=== PATIENT | male | born 1980 | race Caucasian/White ===

== ENCOUNTER 2021-01-24 14:02 | Inpatient (IN) | payer OTHER, SELFPAY ==
[~2021-01-24] VITALS: Ht 188 cm; Wt 156.5 kg
[2021-01-24 14:04] VITALS: BP 137/85
--- NOTE | 2021-01-24 14:04 | NUR ---
PATIENT WHEELCHAIR ASSISTED TO BED 09
[2021-01-24] MEDS ORDERED: ASPIRIN 325 MG TAB PO ONE (14:10)
--- NOTE | 2021-01-24 14:10 | NUR ---
EMT at pt bedside for EKG.
--- NOTE | 2021-01-24 14:12 | NUR ---
40 Y/O MALE FROM HOME C/O EPIGASTRIC PAIN WITH NAUSEA/VOMITING SINCE 0700. PT STATES HE TOOK MEDICATION FOR ACID REFLUX WITH NO RELIEF. PT SKIN COOL AND CLAMMY. DENIES RESPIRATORY SYMPTOMS. STATES 10/10 SHARP, CONSTANT PAIN. PLACED ON BEDSIDE MONITOR, AWAKE AND ALERT. BED LOCKED AND IN LOWEST POSITION X 1 SIDE RAIL RAISED. MEDHX: HYPOTHYROID
--- NOTE | 2021-01-24 14:15 | NUR ---
IV established to left AC 20g, good blood return noted. Blood draws collected and given to labor and delivery nurse Sandy.
--- NOTE | 2021-01-24 14:16 | NUR ---
DR MONSIVAIS AT BEDSIDE
[2021-01-24] MEDS ORDERED: DICYCLOMINE HCL LIQUID 20 MG, ALUMINUM HYD/MAG/SIMETHICONE 30 ML, LIDOCAINE VISCOUS 2% ... PO ONE ×3 (14:25)
[2021-01-24] MEDS ORDERED: FAMOTIDINE 20 MG TAB PO ONE (14:25)
[2021-01-24] MEDS ORDERED: DICYCLOMINE HCL LIQUID 10 MG/5 ML UDC ONE (14:27)
[2021-01-24] MEDS ORDERED: ALUMINUM HYD/MAG/SIMETHICONE 30 ML UDC ONE (14:27)
[2021-01-24] MEDS ORDERED: LIDOCAINE VISCOUS 2% 20 ML UDC ONE (14:27)
[2021-01-24 14:34] LABS: BASOPHILS # (AUTO) 0.1 K/uL (0.00-0.22); BASOPHILS % (AUTO) 0.9 % (0.0-2.0); EOSINOPHILS # (AUTO) 0.1 K/uL (0-0.4); EOSINOPHILS % (AUTO) 0.7 % (0.0-4.0); HEMATOCRIT 45.6 % (36-52); HEMOGLOBIN 15.4 g/dL (12.0-18.0); LYMPHOCYTES # (AUTO) 1.4 K/uL (2.0-11.5); LYMPHOCYTES % (AUTO) 13.1 % (20.5-51.1); MEAN CORPUSCULAR HEMOGLOBIN 32 pg (27-31); MEAN CORPUSCULAR HGB CONC 34 g/dL (33-37); MEAN CORPUSCULAR VOLUME 93.3 fL (80-94); MONOCYTES # (AUTO) 0.6 K/uL (0.8-1.0); MONOCYTES % (AUTO) 5.7 % (1.7-9.3); NEUTROPHILS # (AUTO) 8.7 K/uL (1.8-7.7); NEUTROPHILS % (AUTO) 79.6 % (42.2-75.2); PLATELET COUNT (AUTO) 247 K/uL (140-450); RED BLOOD CELL COUNT(AUTO) 4.89 MIL/uL (4.20-6.10); RED CELL DISTRIBUTION WIDTH 13.4 % (11.6-13.7); WHITE BLOOD COUNT (AUTO) 10.9 K/uL (4.8-10.8)
[2021-01-24 15:06] LABS: ALBUMIN 3.8 g/dL (3.4-5.0); ANION GAP 12.8 (8-16); CARBON DIOXIDE 26.6 mmol/L (21-32); CREATININE 0.9 mg/dL (0.6-1.3); POTASSIUM 4.4 mmol/L (3.5-5.1); TOTAL BILIRUBIN 0.4 mg/dL (0.0-1.0)
--- NOTE | 2021-01-24 15:34 | NUR ---
Dr. Fernandes at pt bedside for further evaluation.
[2021-01-24] MEDS ORDERED: ONDANSETRON 4 MG/2 ML VIAL IVP ONE (15:40)
[2021-01-24] MEDS ORDERED: MORPHINE SULFATE 4 MG/ML SYR IVP ONE (15:40)
[2021-01-24] MEDS ORDERED: NACL 0.9% 1,000 ML IV ONE ×2 (15:40→16:55)
--- NOTE | 2021-01-24 15:51 | NUR ---
US tech at pt bedside.
[2021-01-24] MEDS ORDERED: HYDROmorphone PFS 2 MG/ML SYR IVP ONE (16:50)
[2021-01-24] MEDS ORDERED: metroNIDAZOLE 500 MG/NS PREMIX 100 ML IV ONE (16:50)
[2021-01-24] MEDS ORDERED: cefTRIAXone 2,000 MG in DEXTROSE 5% 100 ML IV ONE (16:50)
[2021-01-24] MEDS ORDERED: cefTRIAXone 2,000 MG VIAL ONE (17:00)
[2021-01-24] MEDS ORDERED: LEVO0.173 PO (17:13)
--- NOTE | 2021-01-24 17:21 | NUR ---
Collected IVELISSE SHAH, walked to lab.
[2021-01-24] MEDS ORDERED: ACETAMINOPHEN 325 MG TAB PO PRN (17:25)
[2021-01-24] MEDS ORDERED: HYDROcodone/APAP 7.5/325 MG 1 TAB PO PRN (17:25)
[2021-01-24] MEDS ORDERED: ONDANSETRON 4 MG/2 ML VIAL IVP PRN (17:25)
[2021-01-24] MEDS ORDERED: DOCUSATE SODIUM 100 MG GELCAP PO PRN (17:25)
--- NOTE | 2021-01-24 17:59 | NUR ---
REPORT GIVEN TO MONSTER TRAMMELL. ETA FOR PATIENT TO BE TAKEN TO THE FLOOR 10 MIN
[2021-01-24 18:00] LABS: PROTHROMBIN TIME 9.2 secs (10.8-13.4)
[2021-01-24] MEDS: NACL 0.9% 1,000 ML IV SCH (18:01)
--- NOTE | 2021-01-24 18:02 | NUR ---
Emptied urinal 1100 clear yellow urine.
--- NOTE | 2021-01-24 18:19 | NUR ---
Patient will be admitted to care of Dr. Brunson. Admited to Med Surg. Will go to room 107A. Belongings list completed. Report to MONSTER Almaguer.
--- NOTE | 2021-01-24 18:20 | NUR ---
PATIENT ARRIVED FROM ER, ABLE TO AMBULATE FROM ER BED TO [facility] BED. PAIN WITHIN TOLERABLE, ON ROOM AIR, IV SITE INTACT, PATENT. ORIENTED PATIENT TO ROOM. SAFETY MEASURES IN PLACE, CALL LIGHT WITHIN REACH. WILL CONTINUE TO MONITOR.
[2021-01-24] MEDS ORDERED: HYDROmorphone 1 MG/ML AMP IVP PRN (19:20)
--- NOTE | 2021-01-24 19:23 | NUR ---
GAVE REPORT TO ELECTRIC MOTOR ASSEMBLER NURSE FOR CONTINUITY OF CARE. PATIENT IN STABLE CONDITION.
--- NOTE | 2021-01-24 19:24 | NUR ---
RECEIVING PATIENT FROM AM NURSE FOR CONTINUITY OF CARE. PATIENT IS STABLE. CALL LIGHT WITHIN REACH. WILL CONTINUE TO MONITOR.
--- NOTE | 2021-01-24 19:45 | NUR ---
C/C INTERMITTENT EPIGASTRIC PAIN FOR COUPLE MONTHS, DX CHOLECYSTITIS. PATIENT IS A/A/O X4. RESPIRATORY EVEN AND UNLABORED, ON ROOM AIR. SKIN WARM, DRY, INTACT, NON-DIAPHORETIC. BOWEL SOUND ACTIVE TO ALL QUADRANT, ABDOMEN SOFT, NON-DISTENDED. IV ON LEFT HAND 20G, IS INFUSING FLUID. PATIENT COMPLAIN EPIGASTRIC BURNING PAIN 4/10, PAIN TOLERABLE. ORIENTED TO ROOM. CARE OF PLAN DISCUSSED, PATIENT VERBALIZED UNDERSTANDING. CALL LIGHT WITHIN REACH. WILL CONTINUE TO MONITOR.
[2021-01-24 20:00] VITALS: BP 130/75
[2021-01-24] MEDS: PIPERACILLIN/TAZOBACTAM 3.375 GM in DEXTROSE 5% 50 ML IV SCH (20:30)
--- NOTE | 2021-01-24 22:16 | NUR ---
PATIENT REPORT EPIGASTRIC BURNING PAIN INCREASE 8/10. PRN MEDICATION GIVEN ORDER. PATIENT TOLERATED WELL. NO SIGN OF DISTRESS NOTED. CALL LIGHT WITHIN REACH. WILL CONTINUE TO MONITOR.
[2021-01-24] MEDS ORDERED: PIPERACILLIN/TAZOBACTAM 3.375 GM VIAL IV ONE (22:25)
--- NOTE | 2021-01-24 23:16 | NUR ---
PAIN REASSESSMENT. REMAIN EPIGASTRIC PAIN 2/10. PAIN TOLERABLE. CALL LIGHT WITHIN REACH. WILL CONTINUE TO MONITOR.
--- NOTE | 2021-01-25 | NUR ---
ROUND CHECK. PATIENT IS SLEEPING IN BED. CHEST RISE AND FALL NOTED. CALL LIGHT WITHIN REACH. WILL CONTINUE TO MONITOR.
[2021-01-25] MEDS ORDERED: PIPERACILLIN/TAZOBACTAM 3.375 GM VIAL IV ONE ×2 (00:25→05:34)
[2021-01-25] MEDS: PIPERACILLIN/TAZOBACTAM 3.375 GM in DEXTROSE 5% 50 ML IV SCH ×3 (00:35→11:41)
--- NOTE | 2021-01-25 02:12 | NUR ---
PATIENT IS SLEEPING IN BED SLEEPING, AROUSABLE BY VOICE. NO S/S OF DISTRESS AT THIS TIME. CALL LIGHT IS WITHIN REACH. ALL SAFETY MEASURES ARE IN PLACE. WILL CONTINUE TO MONITOR.
--- NOTE | 2021-01-25 03:45 | NUR ---
PATIENT IS AMBULATING TO BATHROOM WITH STEADY GAIT INDEPENDENTLY. NO SIGN OF DISTRESS NOTED. WILL CONTINUE TO MONITOR.
[2021-01-25 04:00] VITALS: BP 127/83
--- NOTE | 2021-01-25 05:15 | NUR ---
ROUND CHECK. PATIENT IS SLEEPING IN BED, CHEST RISE AND FALL NOTED. NO SIGN OF DISTRESS NOTED. CALL LIGHT IS WITHIN REACH. WILL CONTINUE TO MONITOR.
--- NOTE | 2021-01-25 05:51 | NUR ---
MEDICATION GIVEN ORDERED. EDUCATION GIVEN. PT VERBALIZED UNDERSTANDING. NO SIGN OF DISTRESS NOTE. CALL LIGHT IS WITHIN REACH. ALL SAFETY MEASURES ARE IN PLACE. WILL CONTINUE TO MONITOR.
--- NOTE | 2021-01-25 07:25 | NUR ---
ENDORSED PATIENT TO AM NURSE FOR CONTINUITY OF CARE. PATIENT IS STABLE.
--- NOTE | 2021-01-25 07:26 | NUR ---
RECEIVED REPORT FROM ETHICS INSTRUCTOR RN FOR CONTINUITY OF CARE. PATIENT RESTING IN BED AWAKE, [id number]. DENIES DISCOMFORT AT THIS TIME. NPO EXCEPT MED. IV TO LEFT HAND 20G INFUSING NS@60ML/HR. PENDING HIDA SCAN AND LAP CHOLECYSTECTOMY THIS MORNING. PLAN OF CARE DISCUSSED. WILL CONTINUE TO MONITOR.
[2021-01-25] MEDS ORDERED: MORPHINE SULFATE 2 MG/ML SYR IVP PRN (07:50)
--- NOTE | 2021-01-25 07:54 | NUR ---
PATIENT WAS PICKED UP TO HAVE HIDA SCAN.
[2021-01-25] MEDS ORDERED: BUPIVACAINE-MPF/EPI 0.25% 10 ML VIAL INJ ONE (08:56)
--- NOTE | 2021-01-25 09:55 | NUR ---
HIDA SCAN CAME BACK NEGATIVE, INFORMED DR. OLGUIN, CANCEL THE SURGERY. INFORMED TEAM AND DR. VILLA.
--- NOTE | 2021-01-25 10:13 | NUR ---
PATIENT HAS BEEN SCREENED AND CATEGORIZED MODERATE NUTRITION RISK. PATIENT WILL BE SEEN WITHIN 3-5 DAYS OF ADMISSION. 01/27/21 01/29/[address]
--- NOTE | 2021-01-25 11:14 | NUR ---
SOCIAL WORK NOTE: Patient's Orientation Unable To Assess Information Provided By TEMITOPE ESPOSITO - Comments SW WAS UNABLE TO MEET PATIENT AT BEDSIDE. SW CONTACTED PATIENT'S TO COMPLETE ASSESSMENT. Motorcycle Repair Shop Supervisor, Realtionship and Phone Number DEDRA ESPOSITO [phone] Healthcare Power of Land Developer No Does Patient Have a POLST No Identifying Problems No Social Work Triggers Is A Social Work Consult Needed No Mandate Report Filed No Explanation Of Identifying Problems PATIENT IS A 40-YEAR-OLD MALE ADMITTED FOR CHOLECYSTITIS. PATIENT HAS PMHX OF THYROID DISEASE. PATIENT'S REPORTED NO HX OF MENTAL HEALTH OR SUBSTANCE ABUSE. Admitted From Home Pre-Admission Level Of Functioning Status Independent/Ambulatory Prior Resources/Services Used In Last 12 Months No Prior Resources Used Prior DME No Prior DME Used Dialysis Comments N/A Living Situation Lives With Family House Patient Had Caregiver No Home Support No Caregiver Issues Financial Issues No Known Financial Issue Referral To The Financial Counselor Needed No Factors/Needs No D/C Needs Identified Pt/Rep Participated In Discharge Plan Yes Patient/Family Agress With Discharge Plan Yes Discharge Plan Comments TENTATIVE DISCHARGE PLAN IS FOR PATIENT TO RETURN HOME. DC Plan Status Initiated
--- NOTE | 2021-01-25 11:42 | NUR ---
IV ZOSYN GIVEN SCHEDULED, EDUCATION PROVIDED, VERBALIZED UNDERSTANDING AND TOLERATED WELL. INFORMED PATIENT HE IS GOING HOME TODAY AND FOLLOW UP WITH DR. OLGUIN OUTPATIENT.
--- NOTE | 2021-01-25 12:06 | NUR ---
DC PLANNIN YRS OLD MALE PATIENT WAS ADMITTED FROM HOME WITH A DX OF CHOLECYSTITIS. PT HAS A HX OF OBESITY, HYPOTHYROIDISM AND HEPATITIS C . CXR SHOWED NEGATIVE. US ABD SHOWED CHOLELITHIASIS. DR OLGUIN SURGEON WAS CONSULTED ORDERED HIDA SCAN SHOWED NO EVIDENCED OF ACUTE CHOLECYSTITIS.PER DR OLGUIN TO DC HOME AND TO FOLLOW UP WITH HIM WITHIN A WEEK. CM TO FOLLOW
[2021-01-25] MEDS: NACL 0.9% 1,000 ML IV SCH (12:14)
[2021-01-25] MEDS ORDERED: ACET-2619 PO (12:22)
[2021-01-25] MEDS ORDERED: IBUP-1842 PO (12:22)
--- NOTE | 2021-01-25 13:35 | NUR ---
DISCHARGE PROTOCOL FOLLOWED. DISCHARGE INSTRUCTIONS PROVIDED AND SIGNED. VERBALIZED UNDERSTANDING OF THE TEACHINGS. PATIENT IN STABLE CONDITION. PATIENT WENT TO TALK TO HIS BROTHER IN [address]. PER [address]'S NURSE HARITHA, [address] WILL BE DISCHARGE WELL, THEY CAN LEAVE TOGETHER.
--- NOTE | 2021-01-25 14:56 | NUR ---
WALKED PATIENT OUT OF THE HOSPITAL, PATIENT IN STABLE CONDITION.
[2021-01-26] MEDS ORDERED: ACET-8386 PO (01:38)
[2021-01-26] MEDS ORDERED: ONDA8TAB87 PO (01:38)
[2021-01-26] MEDS ORDERED: LEVOTHYROXINE 0.075 MG, LEVOTHYROXINE 0.1 MG PO SCH ×2 (06:30)
[2021-01-26] MEDS ORDERED: NON-FORMULARY ITEM (Levothyroxine Sodium* (Synthroid*) 0.175 MG) PO SCH (09:00)
== END 2021-01-25 16:02 | disposition home or self-care (01) | DRG 445 ==
LOC: MED 14:02 → MTU 17:33
PROVIDERS: ADMIT Emergency Medicine; ATTEND Emergency Medicine
PROC: 02HV33Z Insertion of Infusion Device into Superior Vena Cava, Percutaneous Approach (ICD-10-PCS; principal; 2020-12-23)
PROC: B548ZZA Ultrasonography of Superior Vena Cava, Guidance (ICD-10-PCS; 2020-12-23)
DX: K80.70 Calculus of gallbladder and bile duct without cholecystitis without obstruction (principal); Z68.41 Body mass index [BMI] 40.0-44.9, adult; K21.9 Gastro-esophageal reflux disease without esophagitis; Z20.822 Contact with and (suspected) exposure to COVID-19; E03.9 Hypothyroidism, unspecified; E66.01 Morbid (severe) obesity due to excess calories; B19.20 Unspecified viral hepatitis C without hepatic coma; K76.0 Fatty (change of) liver, not elsewhere classified; Z90.49 Acquired absence of other specified parts of digestive tract
CPT/HCPCS: 36415; 71045; 76705; 78445; 80053; 83690; 83880; 84484; 85025; 85610; 85730; 86886; 86900; 86901; 87081; 96365; 96375; 99285; A9510; J0696; J1170; J2270; J2405; J2543; J3490; J7030; J7060

== ENCOUNTER 2021-01-26 00:39 | Emergency (ER) | payer OTHER, SELFPAY ==
[~2021-01-26] VITALS: Ht 188 cm; Wt 164.7 kg
[~2021-01-26 00:39] MED LIST: ACET-2619 PO; IBUP-1842 PO; LEVO0.173 PO
[2021-01-26 00:51] VITALS: BP 107/37
--- NOTE | 2021-01-26 00:55 | NUR ---
PATIENT BIB SELF FOR C/O LUQ AND EPIGASTRIC PAIN 07/02 X 1 DAY. PATIENT PRESENTS A&O X 4. PATIENT STATES, " I WAS DISCHERGED ERALIER TODAY FOR GALLSTONES, MY SURGERY WAS CANCLED AND I WS TOLD I CAN GO OUTPAIENT." PATIENT STATES PAIN RETURNED AND IS CURRENTLY 07/02, PATIENT ALSO HAS C/O OF NAUSEA, DENIES V/D. SEE COMPLETE ASSESSMENT FOR FURTHER DETAILS. MEDHX: HYPOTHYROID, GALLSTONES ALLERGIES: NKA
[2021-01-26] MEDS ORDERED: MORPHINE SULFATE 4 MG/ML SYR IM ONE ×2 (01:05→01:45)
--- NOTE | 2021-01-26 01:16 | NUR ---
ERMD AT BEDSIDE EVALUATING PATIENT.
[2021-01-26] MEDS ORDERED: ONDA8TAB87 PO (01:38)
[2021-01-26] MEDS ORDERED: ACET-8386 PO (01:38)
--- NOTE | 2021-01-26 01:43 | NUR ---
PATIENT REPORTING CONTINUATION OF 9/10 PAIN. ERMD MADE AWARE WITH NEW ORDERS IN PLACE.
[2021-01-26 02:00] VITALS: BP 107/37
--- NOTE | 2021-01-26 02:00 | NUR ---
Patient discharged with v/s stable. Written and verbal after care instructions given and explained. Patient alert, oriented and verbalized understanding of instructions. Ambulatory with steady gait. All questions addressed prior to discharge. ID band removed. Patient advised to follow up with PMD. Rx of HYDROCODONE/ACETAMINOPHEN, ZOFRAN given. Patient educated on indication of medication including possible reaction and side effects. Opportunity to ask questions provided and answered.
== END 2021-01-26 02:00 | disposition home or self-care (01) ==
LOC: MED 00:39
DX: R10.13 Epigastric pain (principal); E07.9 Disorder of thyroid, unspecified; Z90.49 Acquired absence of other specified parts of digestive tract; Z98.890 Other specified postprocedural states; Z79.899 Other long term (current) drug therapy
CPT/HCPCS: 96372; 99284; J2270